=== PATIENT | male | born 1960 | race Two or more races ===

== ENCOUNTER 2019-02-03 12:48 | Emergency (ER) | payer SELFPAY ==
[~2019-02-03] VITALS: Ht 154.9 cm; Wt 89.0 kg
[2019-02-03 15:25] VITALS: BP 129/82
== END 2019-02-03 15:26 | disposition home or self-care (01) ==
LOC: ER 12:48
DX: R33.9 Retention of urine, unspecified (principal); E11.9 Type 2 diabetes mellitus without complications; G89.29 Other chronic pain; Z99.3 Dependence on wheelchair
CPT/HCPCS: 99283